=== PATIENT | female | born 1995 | race Caucasian/White ===

== ENCOUNTER 2018-03-03 20:22 | Emergency (ER) | payer BC, OTHER ==
[2018-03-03] MEDS: RANITIDINE 150 MG TAB PO (21:24)
[2018-03-03] MEDS: LIDOCAINE/MYLANTA 40 ML BTL PO (21:24)
== END 2018-03-03 22:07 | disposition home or self-care (01) ==
LOC: FTE 20:22
DX: R10.13 Epigastric pain (principal)
CPT/HCPCS: 99282